=== PATIENT | female | born 1960 | race American Indian/Alaskan Native ===

== ENCOUNTER 2017-03-20 07:27 | Day surgery (SDC) | payer BC, OTHER ==
--- NOTE | 2017-03-20 08:08 | Discharge Summary ---
Providers - Providers Date of discharge: 03/20/17 Attending physician: [facility] Reason for admission: outpatient EGD Condition: Stable Disposition: DC-01 TO HOME OR SELFCARE Core Measure Documentation - Palliative Care Palliative Care/ Comfort Measures: Not Applicable - Core Measures Any of the following diagnoses?: none Exam - Physical Exam Narrative exam: unchanged from preop Plan Activity: advance as tolerated Diet: low carbohydrate
--- NOTE | 2017-03-20 08:22 | Anesthesia Consultation ---
Anesthesia Consult and Med Hx Date of service: 03/20/17 - Airway Anesthetic Teeth Evaluation: Dentures ROM Head & Neck: Adequate Mental/Hyoid Distance: Adequate Mallampati Class: Class II Intubation Access Assessment: Probably Good - Pulmonary Exam CTA: Yes - Cardiac Exam Cardiac Exam: RRR - Pre-Operative Health Status ASA Pre-Surgery Classification: ASA3 Proposed Anesthetic Plan: MAC - Endocrine Hx Non-Insulin Dependent Diabetes: Yes (diet controlled after weigh loss) - Other Systems Hx Obesity: Yes
--- NOTE | 2017-03-20 08:23 | Anesthesia Day of Surgery ---
Anesthesia Day of Surgery - Day of Surgery Patient Examined: Yes Patient H&P Reviewed: Yes Patient is NPO: Yes
[2017-03-20] MEDS ORDERED: PEPCID IV ONE (08:24)
[2017-03-20] MEDS ORDERED: PEPCID IV NR (09:00)
--- NOTE | 2017-03-20 09:08 | Operative Report ---
Operative Report Operative Report: EGD Post bypass DATE: 03/20/2017 OPERATIVE REPORT - EGD PREOP DIAGNOSIS: gastric dyspepsia POSTOP DIAGNOSIS: same SURGERY: Upper endoscopy. SURGEON: Jv Wilcox M.D. [employer]ICE DRIER OPERATOR: Petros Pimentel M.D. TYPE OF ANESTHESIA: MAC. ESTIMATED BLOOD LOSS: None. COMPLICATIONS: None. SPECIMENS REMOVED: GE junction cold biopsyx2. FINDINGS: 1. distal esophagitis 2. gastric pouch 50ml 3. gastrojejunal anastomosis is 20mm INDICATIONS:INDICATION FOR PROCEDURE: Patient is a 56-year-old F s/p gastric bypass in 2003. The patient is here for a planned EGD for gastric dyspepsia. PROCEDURE DETAILS: After consent was reviewed, patient was taken back to the operating room where patient was placed in the left lateral decubitus position and a bite block was placed in the mouth. After a time-out was called, MAC anesthesia was initiated. I then passed the endoscope into the patients oropharynx, into the esophagus, visualized the entire esophagus, finding distal esophagitis and abnormal Z line. 2 biospies were taken. I then visualized the gastric pouch which was normal and about 50ml in size. The gastrojejunal anastomosis was dilated at about 20mm. The proximal portion of the varghese limb was normal. I then desufflated the gastric pouch and removed the endoscope. Patient tolerated procedure well and was transferred to recovery room in good and stable condition
[2017-03-20] MEDS: NACL 0.9% 1000 ML 1,000 ML IV SCH ×3 (09:10→11:02)
[2017-03-20] MEDS ORDERED: WATER FOR IRRIG STERILE IR ONE (09:11)
[2017-03-20] MEDS ORDERED: DIPRIVAN 10 MG/ML IV ONE ×2 (09:12)
[2017-03-20 10:20] VITALS: BP 112/76
--- NOTE | 2017-03-20 13:05 | Post Anesthesia Evaluation ---
- Post Anesthesia Evaluation Patient Participated: Yes Airway Patent: Yes Stable Respiratory Function: Yes Temp > 96.8F: Yes Pain Manageable: Yes Adequeate Hydration: Yes Anesthesia Complications: No Block Receding Appropriately: Not Applicable
== END 2017-03-20 07:28 | disposition home or self-care (01) ==
LOC: GIO 07:27
PROVIDERS: ATTEND Specialist
DX: K91.89 Other postprocedural complications and disorders of digestive system (principal); K21.0 Gastro-esophageal reflux disease with esophagitis; E78.00 Pure hypercholesterolemia, unspecified; E63.1 Imbalance of constituents of food intake; E11.9 Type 2 diabetes mellitus without complications; F32.9 Major depressive disorder, single episode, unspecified; M19.90 Unspecified osteoarthritis, unspecified site; E66.01 Morbid (severe) obesity due to excess calories; Z68.33 Body mass index [BMI] 33.0-33.9, adult; Z79.899 Other long term (current) drug therapy; Z72.89 Other problems related to lifestyle; Z90.49 Acquired absence of other specified parts of digestive tract; Z90.710 Acquired absence of both cervix and uterus; Z98.890 Other specified postprocedural states; Z80.3 Family history of malignant neoplasm of breast; Y83.8 Other surgical procedures as the cause of abnormal reaction of the patient, or of later complication, without mention of misadventure at the time of the procedure
CPT/HCPCS: 43239; 82962; 88305; 88342; J2704; J7030